=== PATIENT | male | born 1980 | race Caucasian/White ===

== ENCOUNTER 2017-01-13 18:33 | Emergency (ER) | payer MEDICAID ==
[~2017-01-13] VITALS: Ht 175.3 cm; Wt 111.6 kg
[~2017-01-13 18:33] MED LIST: ALBU8.5H8 INH; ATOR20TA PO; CYCL-259 PO; DEXA2TAB PO; DIAZ5TAB PO; FLUO40CA9 PO; GABA600T2 PO; HYDR2TAB29 PO; LAMO25TA5 PO; METF500T4 PO; OMEP40CA3 PO; OXYC10TA6 PO
[2017-01-13 18:49] VITALS: BP 140/73
[2017-01-13] MEDS ORDERED: KETOROLAC 30 MG/1 ML IM ONE (20:00)
[2017-01-13] MEDS ORDERED: METHOCARBAMOL 750 MG TABLET PO ONE (20:00)
[2017-01-13] MEDS ORDERED: METHOCARBAMOL 750 MG TABLET ONE (20:06)
== END 2017-01-13 21:17 | disposition home or self-care (01) ==
LOC: ED 20:50
DX: S63.502A Unspecified sprain of left wrist, initial encounter (principal); S39.012A Strain of muscle, fascia and tendon of lower back, initial encounter; M54.16 Radiculopathy, lumbar region; F12.10 Cannabis abuse, uncomplicated; W18.09XA Striking against other object with subsequent fall, initial encounter; Y93.89 Activity, other specified; Y99.8 Other external cause status; Y92.89 Other specified places as the place of occurrence of the external cause
CPT/HCPCS: 72110; 73110; 81003; 96372; 99285; J1885

== ENCOUNTER → 2017-04-19 | Outpatient (CLI) | payer MEDICAID | END | disposition home or self-care (01) | LOC: CFH 14:54 | PROVIDERS: ATTEND Neurological Surgery | DX: M48.061 Spinal stenosis, lumbar region without neurogenic claudication (principal); M47.896 Other spondylosis, lumbar region; M51.26 Other intervertebral disc displacement, lumbar region; M47.897 Other spondylosis, lumbosacral region; M48.07 Spinal stenosis, lumbosacral region; Z98.890 Other specified postprocedural states; M96.0 Pseudarthrosis after fusion or arthrodesis | CPT/HCPCS: 72131; 72148 ==

== ENCOUNTER 2019-05-25 20:41 | Emergency (ER) | payer MEDICARE, MEDICAID ==
[~2019-05-25] VITALS: Ht 175.3 cm; Wt 115.0 kg
[~2019-05-25 20:41] MED LIST changes: -GABA600T2 PO; +GABA600T7 PO; +METF500T17 PO; -METF500T4 PO
--- NOTE | 2019-05-25 20:57 | NUR ---
PT REPORTS CHRONIC LEFT LEG PAIN, WEAKNESS AND NEUROPATHY, PT REPORTS BURNING SENSATION TRAVELING DOWN LEFT LEG THAT WORSENED STARTING TODAY. HAS HAD BACK SURGERY. PT REPORTS INTERMITTENT GENERALIZED JOINT PAIN AND OCCAIONAL CHEST PAIN, DENIES PAIN AT THIS TIME. EKG DONE. ERP IN ROOM AT THIS TIME. PT CONNECTED TO ALL MONITORING, CALL LIGHT WITHIN REACH, ALL SAFETY MEASURES IN PLACE.
--- NOTE | 2019-05-25 21:03 | NUR ---
PT DIAPHORETIC AND VERY TALKATIVE, PT APPEARS AGITATED.
[2019-05-25] MEDS ORDERED: QUET25TA70 PO (21:10)
[2019-05-25] MEDS ORDERED: DIVA125T2 PO (21:10)
[2019-05-25 21:17] LABS: BASOPHILS # (AUTO) 0.08 x10^3/uL (0-0.1); BASOPHILS % (AUTO) 1 % (0-1); EOSINOPHILS # (AUTO) 0.13 x10^3/uL (0-0.4); EOSINOPHILS % (AUTO) 1 % (1-7); LYMPHOCYTES # (AUTO) 2.68 x10^3/uL (1-3.4); LYMPHOCYTES % (AUTO) 29 % (22-44); MD NO; MEAN CORPUSCULAR HEMOGLOBIN 32.6 pg (27.5-34.5); MEAN CORPUSCULAR HGB CONC 34.2 g/dL (33.2-36.2); MEAN CORPUSCULAR VOLUME 95.1 fL (81-97); MEAN PLATELET VOLUME 8.1 fL (7.4-10.4); MONOCYTES # (AUTO) 0.49 x10^3/uL (0.2-0.8); MONOCYTES % (AUTO) 5 % (2-9); NEUTROPHILS # (AUTO) 5.72 x10^3/uL (1.8-6.8); NEUTROPHILS % (AUTO) 63 % (42-75); PLATELET COUNT 304 x10^3/uL (130-400); RED BLOOD COUNT 4.86 x10^6/uL (4.38-5.82); RED CELL DISTRIBUTION WIDTH 13.6 % (9.4-14.8)
[2019-05-25 21:30] LABS: ALANINE AMINOTRANSFERASE 40 U/L (12-78); ALBUMIN 3.8 g/dL (3.4-5.0); ANION GAP 10 mmol/L (5-15); CALCIUM 8.7 mg/dL (8.5-10.1); CHLORIDE 103 mmol/L (98-107); CREATININE 1.42 mg/dL (0.7-1.3)
[2019-05-25] MEDS ORDERED: KETOROLAC 30 MG/1 ML IVPush ONE (21:30)
[2019-05-25] MEDS ORDERED: DIAZEPAM 5 MG TABLET PO ONE (21:30)
[2019-05-25] MEDS ORDERED: SODIUM CHLORIDE FLUSH 10ML SYR IVF ONE (21:30)
[2019-05-25 21:34] LABS: ALKALINE PHOSPHATASE 95 U/L (45-117); BILIRUBIN,TOTAL 0.3 mg/dL (0.2-1.0); TOTAL PROTEIN 7.2 g/dL (6.4-8.2); TROPONIN I < 0.015 ng/mL (0.000-0.045)
[2019-05-25] MEDS ORDERED: DIAZEPAM 5 MG TABLET ONE (21:36)
[2019-05-25] MEDS ORDERED: KETOROLAC 30 MG/1 ML ONE (21:37)
--- NOTE | 2019-05-25 21:55 | NUR ---
PT UP TO BATHROOM WITH STEADY GAIT. PT RECONNECTED TO ALL MONITORING.
[2019-05-25 22:09] LABS: MICROSCOPIC NOT IND
[2019-05-25 22:12] LABS: CULTURE INDICATED? NO
--- NOTE | 2019-05-25 22:14 | NUR ---
ORTHOSTATIC VS REPORTED TO ERP.
[2019-05-25 22:33] VITALS: BP 126/69
--- NOTE | 2019-05-25 22:34 | NUR ---
PT RESTING ON GURNEY, REPORTS PAIN IS THE SAME BEFORE. PT REPORTS HE USUALLY "JUST WAITS IT OUT".
--- NOTE | 2019-05-25 23:44 | NUR ---
UPON BRINGING D/C PAPERS TO [facility], PT REQUESTED TO SPEAK WITH THE DOCTOR, ABRAHAM AND DR ANAND STATED AT THAT TIME THAT THEY HAD SPOKEN WITH THE PT EXTENSIVELY AND PT NEEDED TO FOLLOW UP WITH NEURO, #S GIVEN, PT CONTINUE TO ARGUE STATING SCANS NEEDED TO BE DONE, PT INSTRUCTED TO F/U WITH BARI, PT THEN STATED THAT THIS NURSE IS THE RUDEST PERSON IN THIS HOSPITAL, PT AMBULATED TO DISCHARGE DESK AND WALKED OUT, THEN PROCEDED TO CHECK IN TO ER AGAIN, [employer]PER[employer] NOTIFIED OF EVENT
== END 2019-05-25 23:49 | disposition home or self-care (01) ==
LOC: ED 21:34
DX: S39.012A Strain of muscle, fascia and tendon of lower back, initial encounter (principal); G89.29 Other chronic pain; E11.40 Type 2 diabetes mellitus with diabetic neuropathy, unspecified; R07.9 Chest pain, unspecified; N28.9 Disorder of kidney and ureter, unspecified; I10 Essential (primary) hypertension; X58.XXXA Exposure to other specified factors, initial encounter; Y93.89 Activity, other specified; Y92.89 Other specified places as the place of occurrence of the external cause; Y99.8 Other external cause status
CPT/HCPCS: 36415; 71045; 80053; 81003; 84484; 85025; 93005; 96374; 99284; J1885